=== PATIENT | male | born 1955 | race Caucasian/White ===

== ENCOUNTER 2016-11-02 08:54 | Emergency (ER) | payer BC, OTHER ==
[2016-11-02 09:18] LABS: ARTERIAL BLD GAS O2 SATURATION 90 % (95-98); ARTERIAL BLOOD GAS BASE EXCESS -28 (-2-+3); ARTERIAL BLOOD GAS HCO3 2.9 mmol/L (22-26); ARTERIAL BLOOD GAS PCO2 < 15 mmHg (35-45); ARTERIAL BLOOD GAS PO2 86 mmHg (80-105); ARTERIAL BLOOD GAS TOTAL CO2 < 5 mmHg (23-27)
[2016-11-02 09:19] LABS: LACTATE 15.25 mmol/L
[2016-11-02 09:30] LABS: ALBUMIN 5.6 g/dL (3.5-5.0); ALKALINE PHOSPHATASE 69 U/L (38-126); ALT 53 U/L (21-72); AST 63 U/L (17-59); BILIRUBIN, DIRECT 0.4 mg/dL (0.0-0.4); BILIRUBIN, TOTAL 0.8 mg/dL (0.2-1.3); BLOOD UREA NITROGEN 11 mg/dL (9-20); CHLORIDE 107 mmol/L (98-107); CREATININE 1.2 mg/dL (0.7-1.3); EST GLOMERULAR FILTRATION RATE > 60 mL/min; ETHYL ALCOHOL 23 mg/dL (<10); LIPASE 163 U/L (23-300); POTASSIUM 3.9 mmol/L (3.5-5.1); TOTAL PROTEIN 9.2 g/dL (6.3-8.2)
[2016-11-02] MEDS ORDERED: SODIUM BICARB IV ONE (09:32)
[2016-11-02] MEDS ORDERED: LORazepam 2 MG/ML INJ ONE ×2 (09:32→10:15)
[2016-11-02 09:44] LABS: GLUCOSE 202 mg/dL (70-100); SALICYLATE < 1.0 mg/dL (<20.0); SODIUM 152 mmol/L (137-145)
[2016-11-02 09:45] LABS: ACETAMINOPHEN > 400.0 ug/mL (10.0-30.0)
[2016-11-02 09:46] LABS: TROPONIN I < 0.012 ng/mL (0.00-0.034)
[2016-11-02] MEDS ORDERED: WATER FOR INJECTION 20 ML ONE ×2 (09:52→12:04)
[2016-11-02 09:53] LABS: BAND% (Manual) 22 % (0.0-1.0); BASOPHIL % (Manual) 0 % (0.0-2.0); EOSINOPHIL % (Manual) 0 % (0.0-6.0); LYMPHOCYTE % (Manual) 15 % (20.0-40.0); METAMYELOCYTE % (Manual) 0 % (0); MONOCYTE % (Manual) 7 % (2.0-10.0); MYELOCYTE % (Manual) 0 % (0); NEUTROPHIL % (Manual) 56 % (54.0-75.0); NUCLEATED RED BLOOD CELL 0 #/100WBC (0-0); PLASMA CELL % (Manual) 0 (0); PLATELET ESTIMATE ADEQUATE; PROMYELOCYTE % (Manual) 0 % (0)
[2016-11-02 09:57] LABS: HEMATOCRIT 56.3 % (42.0-54.0); HEMOGLOBIN 18.3 g/dL (14.0-18.0); MEAN CELL VOLUME 95.7 fL (80.0-100.0); MEAN CORPUS. HGB CONCENTRATION 32.6 g/dL (32.0-36.0); MEAN CORPUSCULAR HEMOGLOBIN 31.2 pg (29.0-35.0); MEAN PLATELET VOLUME 7.9 fL (7.4-10.4); PLATELET COUNT 360 X 10^3uL (130-440); RED BLOOD COUNT 5.88 X 10^6uL (4.20-6.10); RED CELL DISTRIBUTION WIDTH 12.3 % (11.5-14.5); WHITE BLOOD COUNT 23.1 X 10^3uL (3.9-10.7)
[2016-11-02] MEDS ORDERED: ACETYLCYSTEINE IV ONE ×2 (10:00→11:00)
[2016-11-02] MEDS ORDERED: VECURONIUM BROMIDE 20 MG/20 ML VIAL IV ONE ×2 (10:25→12:04)
[2016-11-02] MEDS ORDERED: MIDAZOLAM HCL 2 MG/2 ML VIAL ONE ×2 (10:41→15:36)
[2016-11-02 10:49] LABS: ARTERIAL BLOOD GAS HCO3 6.1 mmol/L (22-26); ARTERIAL BLOOD GAS PCO2 20.6 mmHg (35-45)
--- NOTE | 2016-11-02 11:02 | RADIOLOGY REPORT ---
HISTORY: Trouble breathing COMPARISON: 01/29/2012 FINDINGS: 1 view of the chest obtained. Heart size and mediastinal contours are normal. No effusion, infiltrate or pneumothorax. No definite edema. . IMPRESSION: No acute findings noted within the chest Final Electronic Signature: This report was electronically signed by Corky Paige MD on 11/02/2016 1 0:59 AM. paulo /
[2016-11-02 11:05] LABS: URINE MUCUS NONE SEEN (Up to 25%); URINE RBC NONE SEEN (0-5/hpf); URINE SQUAMOUS EPITHELIAL CELL NONE SEEN (<= 15/hpf); URINE WBC NONE SEEN (0-4/hpf)
[2016-11-02] MEDS ORDERED: NOREPINEPHRINE BITARTRATE 4 MG/4 ML VIAL IV ONE (11:13)
[2016-11-02] MEDS ORDERED: DEXTROSE 5% WATER 500 ML IV ONE (11:16)
[2016-11-02] MEDS ORDERED: VANCOMYCIN HCL 1,250 MG in NORMAL SALINE 250 ML IV ONE (11:30)
[2016-11-02 11:44] LABS: URINE COLOR YELLOW
[2016-11-02 11:45] LABS: URINE APPEARANCE CLEAR; URINE LEUKOCYTE ESTERASE NEGATIVE (NEGATIVE); URINE NITRITE NEGATIVE (NEGATIVE); URINE SPECIFIC GRAVITY 1.025 (0.001-1.035)
[2016-11-02 11:46] LABS: URINE BILIRUBIN NEGATIVE (NEGATIVE); URINE BLOOD 50 Ery/uL (2+) (NEGATIVE); URINE GLUCOSE 100mg/dL (NEGATIVE); URINE KETONE 5mg/dL (NEGATIVE); URINE PROTEIN 100mg/dL (2+) (NEG - TRACE); URINE UROBILINOGEN 0.2mg/dL (Normal) (NEG-1mg/dL)
[2016-11-02 11:47] LABS: URINE BACTERIA <10 ORGANISMS/hpf (<10/hpf); URINE SPERM NONE SEEN
--- NOTE | 2016-11-02 11:50 | ER NURSING DOCUMENTATION ---
Nurse's Notes [facility] Name:Santiago Taylor Age:60 yrs Sex:Male :1955 Arrival Date:11/02/2016 Time:08:54 BedTrauma-A Private MD:Scott Marcial Diagnosis:Tylenol Overdose;Respiratory Failure;Acidosis Presentation: 11/02 08:56 Acuity: JUSTUS 1 tg 11:57 Presenting complaint: EMS states: Pt found down on bathroom floor at home by . tg Transition of care: patient was not received from another setting of care. Time Last Known Well for the patient was Last night before bed. 11:57 Method Of Arrival: EMS: 410 tg Triage Assessment: 08:55 General: Appears distressed, soiled clothes, vomit on shirt, incontinent of urine.. tg Behavior is uncooperative. Pain: Unable to use pain scale. Does not appear to understand pain scale. EENT: dried blood on lips. Neuro: Level of Consciousness is obtunded. Cardiovascular: Capillary refill < 3 seconds. Respiratory: Respiratory effort is labored, Respiratory pattern is hyperventilation tachypnea Breath sounds are clear bilaterally. GI: Abdomen is distended, Parent/caregiver reports the patient having vomiting. :. Derm: Skin is pink, warm & dry. Injury Description: Laceration sustained to left cheek is bleeding no active bleeding noted. Historical: - Allergies: No known drug Allergies; - Home Meds: 1. vitamins - PMHx: Biceps Tendon Rupture (December 11, 2015); - PSHx: bowel obstruction; lymph nodes in stomach; ankle; - Tetanus: unknown. - Ebola Screening: : Unable to complete screening because. - Immunization history: Flu Vaccine unknown. - Social history: Smoking status: unknown if patient ever smoked tobacco. Screenin:31 Infectious Disease Risk Unable to Obtain. Abuse screen: Unable to Obtain. Nutritional tg screening: Unable to Obtain. Assessment: 09:09 Reassessment: Per BETTE naik, CT scanning is unavailable and will not be possible for an tg unknown period of time. 09:15 Reassessment: Pt seems to be signalling that he would like a drink. He also is moving tg his legs, seems to be distressed. Family at bedside providing comfort to patient. . 10:46 Reassessment: Patient states symptoms have improved. [facility] requesting that we place a tg central line prior to transfer. Dr. Steiner at the bedside. . 10:48 Reassessment: Pt moving leg, seems to be "overbreathing" the vent. Eyes closed. Dr. iqra Steiner notified. . Vital Signs: 08:55 BP 167 / 94 (auto/); tg 08:57 Pulse 89 MON; Resp 26; Pulse Ox 90% ; tg 09:00 BP 155 / 85 (auto/); tg 09:02 Pulse 83 MON; Resp 26; Pulse Ox 90% ; tg 09:07 Temp 97.9(TE); tg 09:20 BP 145 / 69 (auto/); tg 09:22 Pulse 93 MON; Resp 39; Pulse Ox 90% ; tg 09:32 Pulse 103; Pulse Ox 90% ; sd3 09:33 Weight 83.91 kg (R); Height 5 ft. 8 in. (172.72 cm) (R); tg 09:37 BP 154 / 83; Pulse 101; Resp 35; Pulse Ox 91% ; sd3 09:41 BP 179 / 99; Pulse 119; Resp 29; Pulse Ox 89% ; sd3 10:10 BP 147 / 104 (auto/); tg 10:12 Pulse 83 MON; Resp 19; Pulse Ox 95% ; tg 10:21 BP 126 / 75 (auto/); tg 10:22 Pulse 69 MON; Resp 18; Pulse Ox 95% ; tg 10:22 BP 113 / 75 (auto/); tg 10:30 BP 87 / 67 (auto/); tg 10:32 BP 98 / 66 (auto/); tg 10:32 Pulse 63 MON; Resp 18; Pulse Ox 96% ; tg 10:37 Pulse 62 MON; Resp 14; Pulse Ox 95% ; tg 09:33 Body Mass Index 28.13 (83.91 kg, 172.72 cm) tg ED Course: 08:55 Patient arrived in ED. lm3 08:55 Scott Marcial MD is Private Physician. lm3 08:56 Timothy Lucas, ELIOT is Primary Nurse. tg 08:56 Emmanuel Steiner MD is Attending Physician. jm 08:56 Triage completed. tg 08:56 One-on-one care X 140 minutes. tg 09:08 Arm band placed on Bed in low position Call Light in Reach HOB Elevated Side rails up tg x1 Patient warming blankets and warming lamp. 09:24 Port Xray Completed. pm1 09:31 Valuables Remains with patient. banking and finance instructor on. Pulse ox on. tg 09:32 Maintain field IV. RAC and LAC IVs by EMS. tg 10:10 Oconnor cath inserted 16 Fr. Balloon inflated. To gravity drainage. Urine specimen tg collected. 10:29 Assist Provider Assist provider with intubation with 7.5 mm ETT. via oral route. Set up tg intubation tray. Intubated by Emmanuel Steiner MD Placement verified by CO2 detector w/ + color change, auscultating bilateral breath sounds, Patient tolerated well. 11:00 Assist Provider Assist provider with central line placement of triple lumen in right la subclavian. Set up central line tray. Line placed by Emmanuel Steiner MD Placement verified by CXR, blood return, Dressed with Tegaderm, biopatch Blood was collected. Patient tolerated well. 11:16 Port Xray Completed. pm1 11:17 CHEST; SINGLE VIEW [id number] In Process Unspecified. EDMS 11:17 CHEST SINGLE [place]IEW [id number] In Process Unspecified. EDMS 15:36 EKG attached la Administered Medications: 09:15 Drug: NS 0.9% 1000 ml; Route: IV; Rate: bolus; Site: right antecubital; Delivery: tg [place] Tubing; 11:21 Follow up: Response: No adverse reaction; IV Status: Completed infusion; IV Intake: tg 1000ml 09:24 Drug: Ativan 1 mg; Route: IVP; Site: right antecubital; tg 10:43 Follow up: Response: Patient is sedated tg 09:26 Drug: Sodium Bicarbonate 1 amp; Route: IVP; Site: right antecubital; tg 10:43 Follow up: Response: Patient is sedated tg 09:54 Drug: Etomidate (90kg) 34 mg; Route: IVP; Site: right antecubital; tg 10:42 Follow up: Response: Patient is sedated tg 09:55 Drug: Succinylcholine (ADULT) 127.5 mg; Route: IVP; Site: right antecubital; tg 10:43 Follow up: Response: Patient is sedated tg 10:00 Drug: n-acytlycystine 29814 mg; Route: IV; Rate: calculated rate; Infused Over: 1 hrs; tg Site: right antecubital; Delivery: Pump; 11:16 Follow up: IV Status: Completed infusion; IV Intake: 250ml tg 10:03 Drug: Versed 4 mg; Route: IVP; Site: right antecubital; tg 10:43 Follow up: Response: Patient is sedated tg 10:05 Drug: Vecuronium 8.5 mg; Route: IVP; Site: right antecubital; tg 10:44 Follow up: Response: Patient is sedated tg 10:18 Drug: Vecuronium 8.5 mg; Route: IVP; Site: right antecubital; tg 10:44 Follow up: Response: Patient is sedated tg 11:19 Drug: Versed 4 mg; Route: IVP; Site: right subclavian; tg 11:49 Follow up: Response: No adverse reaction; Patient is sedated tg 11:25 Drug: N- Acyetalcystine 4.1 grams; Route: IV; Rate: calculated rate; Infused Over: 4 tg hrs; Site: right subclavian; Delivery: Pump; 11:45 Drug: Vancocin 1250 mg; Volume: 250 ml; Route: IVPB; Infused Over: 90 mins; Site: right tg subclavian; Delivery: Pump; Intake: 11:16 IV: 250ml; Total: 250ml. tg 11:21 IV: 1000ml; Total: 1250ml. tg Ventilator: 10:31 Fi02: 65%; Rate: 18min; T.V.: 600ml; Peep: 5cm; tg Outcome: 11:11 ER care complete, transfer ordered by MD. reyna 11:40 Transferred: Patient will be transferred to: [facility] Acceptance Time: November 02, 2016 at 11:00 Patient's face sheet was faxed to accepting facility. Face Sheet included patient's name, address, age, gender, contact information and insurance information. Patient will be transported by: [facility] [place]. Report called to: KRISTI Ibrahim RN Nurse and Physician Charting and Notes were sent to Accepting Facility. All tests and/or procedures with results, if applicable, were sent to accepting facility. 11:40 critical 11:40 Discharge Assessment: Patient unresponsive. 11:40 Instructed on Family instructed on need to transfer 11:40 Critical Care visit due to symptomatic overdose. 11:49 Patient left the ED. tg Signatures: Dispatcher [facility] EDTimothy Choudhury RN Emmanuel Villagomez MD MD jm McBride, Philisha pm1 [facility]ly [facility], [facility] sd3 Helen Thacker, Inge lm3
--- NOTE | 2016-11-02 11:50 | ER PHYSICIAN DOCUMENTATION ---
Physician Documentation [facility] Name:Santiago Taylor Age:60 yrs Sex:Male :1955 Arrival Date:11/02/2016 Time:08:54 BedTrauma-A Private MD:Scott Marcial ED, John Disposition: 11/02 10:13 Critical Care:. 11:10 Critical Care:. Disposition: 11/02/16 11:11 Transfer ordered to Other Acute Care Facility. Diagnosis are Tylenol Overdose, Respiratory Failure, Acidosis. - Reason for transfer: Higher level of care. - Accepting physician is Dr. Kamara. - Condition is Critical. - Problem is new. - Symptoms are unchanged. COBRA Form completed? Yes Transfer - Mode of Transportation Ambulance HPI: 09:21 This 60 yrs old Male presents to ER with complaints of AMS. 09:21 The patient presents with confusion, decreased mental status, decreased responsiveness. Onset: The symptom(s)/episode began/occurred this morning, today. Possible causes: unknown. Associated signs and symptoms: Pertinent positives: fall, tachypnea . Current symptoms: In the emergency department the patient's symptoms are unchanged from the initial presentation. 10:02 The patient has not experienced similar symptoms in the past. The patient has not jm recently seen a physician. 60 yo M found down by his . Pt had some vomit on the pillow and some vomit around the bathroom floor. He was breathing very fast and was minimally responsive. . 10:04 His family got here and he shook his head yes, when they asked him about a possible overdose of pills. . Historical: - Allergies: No known drug Allergies; - Home Meds: 1. vitamins - PMHx: Biceps Tendon Rupture (December 11, 2015); - PSHx: bowel obstruction; lymph nodes in stomach; ankle; - Tetanus: unknown. - Ebola Screening: : Unable to complete screening because. - Immunization history: Flu Vaccine unknown. - Social history: Smoking status: unknown if patient ever smoked tobacco. ROS: 10:04 Constitutional: maribell 10:04 Neuro: Positive for altered mental status. 10:04 Psych: Positive for suicide gesture. 10:05 Unable to obtain ROS due to altered mental status, patient is on ventilator. Exam: 10:05 Constitutional: The patient appears awake, in obvious distress, restless. 10:05 Head/face: Noted is a laceration(s), that is superficial, .3 cm(s), of the left cheek, Sinus tenderness, is not appreciated. 10:05 Eyes: Pupils: equal, round, and reactive to light and accomodation, Corneas: are normal, Sclera: no appreciated abnormality. 10:05 ENT: Mouth: Oral mucosa: dry, Dental exam: normal. 10:05 Cardiovascular: Rate: tachycardic, Rhythm: regular. 10:05 Respiratory: severe respiratory distress is noted, Respirations: tachypnea, deep respirations. . 10:05 Abdomen/GI: Bowel sounds: normal, Palpation: abdomen is soft and non-tender. 10:05 : CVA tenderness, is absent, Male external genitalia: normal. 10:05 Skin: Appearance: Color: normal in color, no rash present. 10:05 Neuro: Mentation: responsive to pain, partially responsive to commands. , Motor: moves all fours. 10:05 Psych: Behavior/mood is anxious. Vital Signs: 08:55 BP 167 / 94 (auto/); tg 08:57 Pulse 89 MON; Resp 26; Pulse Ox 90% ; tg 09:00 BP 155 / 85 (auto/); tg 09:02 Pulse 83 MON; Resp 26; Pulse Ox 90% ; tg 09:07 Temp 97.9(TE); tg 09:20 BP 145 / 69 (auto/); tg 09:22 Pulse 93 MON; Resp 39; Pulse Ox 90% ; tg 09:32 Pulse 103; Pulse Ox 90% ; sd3 09:33 Weight 83.91 kg (R); Height 5 ft. 8 in. (172.72 cm) (R); tg 09:37 BP 154 / 83; Pulse 101; Resp 35; Pulse Ox 91% ; sd3 09:41 BP 179 / 99; Pulse 119; Resp 29; Pulse Ox 89% ; sd3 10:10 BP 147 / 104 (auto/); tg 10:12 Pulse 83 MON; Resp 19; Pulse Ox 95% ; tg 10:21 BP 126 / 75 (auto/); tg 10:22 Pulse 69 MON; Resp 18; Pulse Ox 95% ; tg 10:22 BP 113 / 75 (auto/); tg 10:30 BP 87 / 67 (auto/); tg 10:32 BP 98 / 66 (auto/); tg 10:32 Pulse 63 MON; Resp 18; Pulse Ox 96% ; tg 10:37 Pulse 62 MON; Resp 14; Pulse Ox 95% ; tg 09:33 Body Mass Index 28.13 (83.91 kg, 172.72 cm) tg Ventilator: 10:31 Fi02: 65%; Rate: 18min; T.V.: 600ml; Peep: 5cm; tg Procedures: 10:08 Intubation: Ventilated with 100% NRB prior to procedure. Intubated orally using glidescope with 7.5 mm ETT. was successful on first attempt. Ventilated with ventilator. Tube secured with ETT gusman Placement verified by CO2 detector with (+) color change, auscultating bilateral breath sounds, watching tube go down. . Patient tolerated well. 10:45 Central Line: the site was prepped with in sterile fashion, a triple lumen catheter was jm inserted, in the right subclavian vein, in 1 attempts. placement was verified, by CXR, by blood return, the site was dressed with Tegaderm, the patient tolerated the procedure, well. MDM: 08:56 Patient medically screened. 10:09 Differential Diagnosis: CVA, electrolyte abnormality, intracranial bleed, overdose, jm sepsis. Data reviewed: vital signs, nurses notes, lab test result(s), EKG, radiologic studies, and as a result, I will *Transfer Patient. Test interpretation: by ED physician or midlevel provider: plain radiologic studies, ECG. Physician consultation: Dr. Chanel was called at 09:45, was contacted at 09:50, regarding patient's condition. ED course: After labs returned, pt has a APAP overdose. Pt was intubated based on low pH and tachypnea. Intubation was success. Will start NAC over 1 hours and transfer to [facility]. Dr. Chanel has accepted. . 10:32 ED course: Dr. Chanel at [facility] was informed about the elevated APAP level and feels that [facility] would be more appropriate since they have transplant capability. This makes sense. We only have enough NAC at this hospital for the initial loading dose and partially for the next hour. AT this time, I am still waiting to hear back from [place]. . 11:06 Other consultation: Dr. Kamara at [facility]. . ED course: Spoke w Dr. Kamara at 10:40 at [facility]. He accepted the pt, but would like central access, pressors, and abx. These were just completed. Pt will go by ambulance since there is bad weather. . 15:36 EKG attached la 11/02 09:20 Order name: ARTERIAL BLOOD GAS; Complete Time: 09:21 EDMS 11/02 09:20 Order name: LACTATE; Complete Time: 09:21 EDMS 11/02 09:47 Order name: BASIC METABOLIC PANEL; Complete Time: 13: EDMS 11/02 09:47 Order name: HEPATIC PANEL; Complete Time: 13: EDMS 11/02 09:47 Order name: LIPASE; Complete Time: 13: EDMS 11/02 09:47 Order name: SALICYLATE; Complete Time: 13: EDMS 11/02 09:47 Order name: ETHYL ALCOHOL; Complete Time: 13: EDMS 11/02 09:47 Order name: ACETAMINOPHEN; Complete Time: 13: EDMS 11/02 09:47 Order name: TROPONIN I; Complete Time: 13: EDMS 11/02 09:54 Order name: MANUAL DIFFERENTIAL; Complete Time: 13: ED11/02 09:58 Order name: CBC WITHOUT A DIFFERENTIAL; Complete Time: 13: EDMS 11/02 10:51 Order name: ARTERIAL BLOOD GAS; Complete Time: 11:12 EDMS 11/02 10:57 Order name: URINE DRUG SCREEN, QUAL; Complete Time: 11:12 EDMS 11/02 11:48 Order name: UA W/ MICRO -CULTURE IF IND; Complete Time: 13: EDMS 11/02 12:18 Order name: PROTIME/INR; Complete Time: 13: EDMS 11/02 12:33 Order name: ABO GROUP; Complete Time: 13: EDMS 11/02 12:33 Order name: RH TYPE; Complete Time: 13: EDMS 11/02 12:33 Order name: ANTIBODY SCREEN; Complete Time: : EDMS 11/03 07:31 Order name: ARTERIAL BLOOD GAS ED11/02 11:04 Order name: CHEST; SINGLE VIEW [id number]; Complete Time: 11:12 EDMS 11/02 11:17 Order name: CHEST; SINGLE VIEW [id number] EDMS 11/02 11:17 Order name: CHEST SINGLE VIEW [id number] ED11/02 13:07 Order name: CHEST; SINGLE VIEW [id number]; Complete Time: 13:08 EDGA 11/02 08:56 Order name: 12-lead EKG; Complete Time: 10:34 11/02 08:56 Order name: Continuous Cardiac Monitoring; Complete Time: 09:12 11/02 08:56 Order name: I & O; Complete Time: 09:12 11/02 08:56 Order name: Iv Saline Lock; Complete Time: 09:12 11/02 08:56 Order name: Pulse Ox Continuous; Complete Time: 09:12 11/02 09:16 Order name: Iv Saline Lock; Complete Time: 10:34 11/02 10:33 Order name: Oconnor; Complete Time: 10:33 tg Dispensed Medications: 09:15 Drug: NS 0.9% 1000 ml; Route: IV; Rate: bolus; Site: right antecubital; Delivery: tg [place] Tubing; 11:21 Follow up: Response: No adverse reaction; IV Status: Completed infusion; IV Intake: tg 1000ml 09:24 Drug: Ativan 1 mg; Route: IVP; Site: right antecubital; tg 10:43 Follow up: Response: Patient is sedated tg 09:26 Drug: Sodium Bicarbonate 1 amp; Route: IVP; Site: right antecubital; tg 10:43 Follow up: Response: Patient is sedated tg 09:54 Drug: Etomidate (90kg) 34 mg; Route: IVP; Site: right antecubital; tg 10:42 Follow up: Response: Patient is sedated tg 09:55 Drug: Succinylcholine (ADULT) 127.5 mg; Route: IVP; Site: right antecubital; tg 10:43 Follow up: Response: Patient is sedated tg 10:00 Drug: n-acytlycystine 87470 mg; Route: IV; Rate: calculated rate; Infused Over: 1 hrs; tg Site: right antecubital; Delivery: Pump; 11:16 Follow up: IV Status: Completed infusion; IV Intake: 250ml tg 10:03 Drug: Versed 4 mg; Route: IVP; Site: right antecubital; tg 10:43 Follow up: Response: Patient is sedated tg 10:05 Drug: Vecuronium 8.5 mg; Route: IVP; Site: right antecubital; tg 10:44 Follow up: Response: Patient is sedated tg 10:18 Drug: Vecuronium 8.5 mg; Route: IVP; Site: right antecubital; tg 10:44 Follow up: Response: Patient is sedated tg 11:19 Drug: Versed 4 mg; Route: IVP; Site: right subclavian; tg 11:49 Follow up: Response: No adverse reaction; Patient is sedated tg 11:25 Drug: N- Acyetalcystine 4.1 grams; Route: IV; Rate: calculated rate; Infused Over: 4 tg hrs; Site: right subclavian; Delivery: Pump; 11:45 Drug: Vancocin 1250 mg; Volume: 250 ml; Route: IVPB; Infused Over: 90 mins; Site: right tg subclavian; Delivery: Pump; Critical care time excluding procedures: 11:10 Critical care time: Bedside Care: 120 minutes, Consultation: 30 minutes, Family jm Intervention: 10 minutes. Total time: 160 minutes Signatures: Timothy Lucas RN RN tg Meyer, John, MD MD jm Alexander, Linda la
[2016-11-02 12:32] LABS: ABO GROUP TYPE A
[2016-11-02 12:33] LABS: ANTIBODY SCREEN NEGATIVE; RH TYPE POSITIVE
--- NOTE | 2016-11-02 13:05 | RADIOLOGY REPORT ---
HISTORY: Difficulty breathing line placement COMPARISON: Earlier today FINDINGS: 1 view of the chest obtained. Since the prior study the patient has been intubated. The tube terminat es approximately 7 cm from the lisandro. Right subclavian catheter has been placed. It terminates in th e distal superior vena cava. No pneumothorax. Ill-defined infiltrate at the right base is more promin ent. IMPRESSION: New ET tube and right subclavian catheter without evidence of complication. Increasing infiltrate at the right base. Final Electronic Signature: This report was electronically signed by Corky Paige MD on 11/02/2016 1 :03 PM. paulo /
[2016-11-02] MEDS ORDERED: FENTANYL 250 MCG/5 ML VIAL ONE (15:35)
== END 2016-11-02 11:49 | disposition short-term general hospital (02) ==
LOC: EEVIPCON 08:54 → ER 08:54
DX: T39.1X2A Poisoning by 4-Aminophenol derivatives, intentional self-harm, initial encounter (principal); J96.90 Respiratory failure, unspecified, unspecified whether with hypoxia or hypercapnia; E87.2 Acidosis; R11.10 Vomiting, unspecified; E86.0 Dehydration; E87.1 Hypo-osmolality and hyponatremia; S01.412A Laceration without foreign body of left cheek and temporomandibular area, initial encounter; W19.XXXA Unspecified fall, initial encounter; Y92.012 Bathroom of single-family (private) house as the place of occurrence of the external cause; R41.82 Altered mental status, unspecified; R00.0 Tachycardia, unspecified; Z79.899 Other long term (current) drug therapy; C83.30 Diffuse large B-cell lymphoma, unspecified site; Z99.89 Dependence on other enabling machines and devices; Z74.3 Need for continuous supervision; Z99.81 Dependence on supplemental oxygen; Z46.6 Encounter for fitting and adjustment of urinary device
CPT/HCPCS: 31500; 36556; 51702; 71010; 80048; 80076; 80305; 80307; 80320; 80329; 81001; 82803; 83605; 83690; 84484; 85007; 85027; 85610; 86850; 86900; 86901; 93005; 99291; 99292; J0132; J2060; J2250; J3370; J7050; J7060